=== PATIENT | male | born 1970 | race Caucasian/White ===

== ENCOUNTER 2024-02-16 07:15 | Emergency (ER) | payer OTHER ==
[~2024-02-16] VITALS: Ht 170.2 cm; Wt 77.1 kg
[2024-02-16 07:23] VITALS: O2SAT 99
[2024-02-16] MEDS ORDERED: IBUP-1955 PO (09:47)
[2024-02-16] MEDS ORDERED: ONDA4TAB5 PO (09:47)
[2024-02-16] MEDS ORDERED: BENZ-13 PO (09:47)
[2024-02-16] MEDS ORDERED: ALBU18HF2 INH (09:47)
== END 2024-02-16 10:01 | disposition home or self-care (01) ==
LOC: ER 07:15
DX: J10.1 Influenza due to other identified influenza virus with other respiratory manifestations (principal); R05.9 Cough, unspecified; R53.1 Weakness; E78.5 Hyperlipidemia, unspecified; R11.0 Nausea; Z20.822 Contact with and (suspected) exposure to COVID-19
CPT/HCPCS: 71045; A4606; A4663

== ENCOUNTER 2024-06-18 14:49 | Emergency (ER) | payer OTHER ==
[~2024-06-18] VITALS: Ht 170.2 cm; Wt 81.6 kg
[~2024-06-18 14:49] MED LIST: ALBU18HF2 INH; BENZ-13 PO; IBUP-1955 PO; ONDA4TAB5 PO
[2024-06-18 17:17] VITALS: BP 118/77; O2SAT 97
== END 2024-06-18 17:18 | disposition home or self-care (01) ==
LOC: ER 14:49
DX: M25.562 Pain in left knee (principal); E78.5 Hyperlipidemia, unspecified; D86.9 Sarcoidosis, unspecified
CPT/HCPCS: A4606; A4663

== ENCOUNTER 2024-06-23 06:32 | Emergency (ER) | payer OTHER ==
[~2024-06-23] VITALS: Ht 170.2 cm; Wt 81.6 kg
[2024-06-23] MEDS ORDERED: ESCI10TA PO (06:43)
[2024-06-23] MEDS ORDERED: ENAL20TA18 PO (06:43)
[2024-06-23] MEDS ORDERED: ROSU10TA29 PO (06:43)
[2024-06-23] MEDS ORDERED: SULF1TAB48 PO (07:11)
[2024-06-23] MEDS ORDERED: CEPH500C2 PO (07:11)
[2024-06-23] MEDS ORDERED: HYDR-3980 PO (07:11)
[2024-06-23] MEDS ORDERED: SULFAMETH/TRIMETH 800/160 MG TABLET ONE (07:14)
[2024-06-23] MEDS ORDERED: CEphaleXIN 500 MG CAPSULE ONE (07:14)
[2024-06-23] MEDS: CEphaleXIN 500 MG CAPSULE PO ONE (07:21)
[2024-06-23] MEDS: SULFAMETH/TRIMETH 800/160 MG TABLET PO ONE (07:21)
[2024-06-23 07:24] VITALS: BP 148/71; TEMP 97.8; O2SAT 99
== END 2024-06-23 07:26 | disposition home or self-care (01) ==
LOC: ER 06:32
DX: M70.21 Olecranon bursitis, right elbow (principal); E78.5 Hyperlipidemia, unspecified; Z79.899 Other long term (current) drug therapy
CPT/HCPCS: A4606; A4663